=== PATIENT | female | born 1965 | race Asian ===

== ENCOUNTER 2017-12-07 08:18 | Emergency (ER) | payer OTHER ==
[~2017-12-07] VITALS: Ht 162.6 cm; Wt 58.8 kg
[2017-12-07] MEDS ORDERED: TAMO10 PO (08:32)
[2017-12-07] MEDS ORDERED: SODIUM CHLORIDE 0.9% 1,000 ML IV ONE (08:57)
[2017-12-07] MEDS ORDERED: ONDANSETRON HCL 4 MG/2 ML VIAL IVP ONE (09:00)
[2017-12-07] MEDS ORDERED: MECLIZINE HCL 25 MG TABLET PO ONE (09:00)
[2017-12-07 09:21] LABS: BASOPHILS % (AUTO) 0.4 % (0.0-2.0); EOSINOPHILS % (AUTO) 0.6 % (1.0-6.0); HEMATOCRIT 39.7 % (36-46); HEMOGLOBIN 13.4 g/dL (12.0-16.0); LYMPHOCYTES # (AUTO) 1.6 K/uL (1.0-4.8); LYMPHOCYTES % (AUTO) 22.3 % (22.0-44.0); MEAN CORPUSCULAR HEMOGLOBIN 26.7 pg (26.0-34.0); MEAN CORPUSCULAR HGB CONC 33.7 G/dL (31.0-37.0); MEAN CORPUSCULAR VOLUME 79 fL (80-100); MONOCYTES # (AUTO) 0.4 K/uL (0.1-1.0); MONOCYTES % (AUTO) 4.8 % (2.0-9.0); NEUTROPHILS # (AUTO) 5.3 K/uL (1.8-7.7); NEUTROPHILS % (AUTO) 71.9 % (40.0-70.0); PLATELET COUNT (AUTO) 281 K/uL (150-450); RED BLOOD CELL COUNT(AUTO) 5.02 MIL/uL (4.00-5.20)
[2017-12-07 09:30] LABS: ANION GAP 10 mmol/L (8-16); CALCIUM, TOTAL 9.4 mg/dL (8.8-10.5); CARBON DIOXIDE 29 mmol/L (22-29); CHLORIDE 103 mmol/L (98-107); CREATININE 0.58 mg/dL (0.60-1.30); GLOMERULAR FILTR. RATE CALC > 60 mL/min (>60); GLUCOSE,RANDOM 133 mg/dL (70-110); POTASSIUM 3.6 mmol/L (3.5-5.1); SODIUM SERUM 142 mmol/L (136-145); UREA NITROGEN, BLOOD 15 mg/dL (7-18)
[2017-12-07 09:36] LABS: ALANINE AMINOTRANSFERASE 61 U/L (12-78); ALBUMIN 3.9 g/dL (3.4-5.0); ALKALINE PHOSPHATASE 70 U/L (46-116); ASPARTATE AMINOTRANSFERASE 37 U/L (15-37); BILIRUBIN,TOTAL 0.5 mg/dL (0.1-1.0); LIPASE 463 U/L (73-393); TOTAL PROTEIN, SERUM 7.3 g/dL (6.4-8.2)
[2017-12-07 09:55] LABS: BILIRUBIN,URINE NEGATIVE (NEGATIVE); GLUCOSE, URINE (UA) NEGATIVE (NEGATIVE); KETONES,URINE NEGATIVE (NEGATIVE); LEUKOCYTE ESTERASE ,URINE NEGATIVE (NEGATIVE); NITRATE,URINE NEGATIVE (NEGATIVE); OCCULT BLOOD,URINE NEGATIVE (NEGATIVE); PH,URINE 7.5 (5.0-8.0); PROTEIN,URINE NEGATIVE (NEGATIVE); UROBILINOGEN,URINE 0.2 mg/dL (<=1.0)
[2017-12-07 10:18] LABS: APPEARANCE,URINE HAZY (CLEAR)
[2017-12-07 11:22] VITALS: BP 124/85
== END 2017-12-07 11:54 | disposition home or self-care (01) ==
LOC: EMS 08:19
DX: K85.90 Acute pancreatitis without necrosis or infection, unspecified (principal); R11.2 Nausea with vomiting, unspecified; R42 Dizziness and giddiness; I10 Essential (primary) hypertension; Z79.899 Other long term (current) drug therapy
CPT/HCPCS: 36415; 80053; 81003; 83690; 85025; 96361; 96374; 99284; J2405; J7030

== ENCOUNTER 2019-02-20 09:18 | Emergency (ER) | payer OTHER ==
[~2019-02-20] VITALS: Ht 157.5 cm; Wt 57.7 kg
[~2019-02-20 09:18] MED LIST: TAMO10 PO
[2019-02-20] MEDS ORDERED: GUAI5SYR4 PO (09:38)
[2019-02-20] MEDS ORDERED: ONDANSETRON HCL 4 MG/2 ML VIAL IVP ONE (09:45)
[2019-02-20] MEDS ORDERED: SODIUM CHLORIDE 0.9% 1,000 ML IV ONE (09:45)
[2019-02-20 10:10] LABS: BASOPHILS % (AUTO) 0.3 % (0.0-2.0); EOSINOPHILS % (AUTO) 0.8 % (1.0-6.0); HEMATOCRIT 39.3 % (36-46); HEMOGLOBIN 12.9 g/dL (12.0-16.0); LYMPHOCYTES # (AUTO) 1.1 K/uL (1.0-4.8); LYMPHOCYTES % (AUTO) 15.1 % (22.0-44.0); MEAN CORPUSCULAR HEMOGLOBIN 26.9 pg (26.0-34.0); MEAN CORPUSCULAR HGB CONC 32.8 G/dL (31.0-37.0); MEAN CORPUSCULAR VOLUME 82 fL (80-100); MONOCYTES # (AUTO) 0.6 K/uL (0.1-1.0); MONOCYTES % (AUTO) 8.7 % (2.0-9.0); NEUTROPHILS # (AUTO) 5.4 K/uL (1.8-7.7); NEUTROPHILS % (AUTO) 75.1 % (40.0-70.0); PLATELET COUNT (AUTO) 236 K/uL (150-450); RED BLOOD CELL COUNT(AUTO) 4.79 MIL/uL (4.00-5.20); RED CELL DISTRIBUTION WIDTH 14.1 % (11.5-14.5)
[2019-02-20 10:19] LABS: ANION GAP 7 mmol/L (8-16); CARBON DIOXIDE 29 mmol/L (22-29); CHLORIDE 103 mmol/L (98-107); CREATININE 0.61 mg/dL (0.60-1.30); GLOMERULAR FILTR. RATE CALC > 60 mL/min (>60); GLUCOSE,RANDOM 132 mg/dL (70-110); POTASSIUM 3.4 mmol/L (3.5-5.1); SODIUM SERUM 139 mmol/L (136-145); UREA NITROGEN, BLOOD 9 mg/dL (7-18)
[2019-02-20 10:31] LABS: B-TYPE NATRIURETIC PEPTIDE 43 pg/mL (0-100)
[2019-02-20 10:44] LABS: ALANINE AMINOTRANSFERASE 49 U/L (12-78); ALBUMIN 3.7 g/dL (3.4-5.0); ALKALINE PHOSPHATASE 85 U/L (46-116); ASPARTATE AMINOTRANSFERASE 42 U/L (15-37); BILIRUBIN,TOTAL 0.2 mg/dL (0.1-1.0); CREATINE KINASE, TOTAL ONLY 117 U/L (26-192); TOTAL PROTEIN, SERUM 7.8 g/dL (6.4-8.2)
[2019-02-20] MEDS ORDERED: SODIUM CHLORIDE 0.9% 100 ML ONE (10:44)
[2019-02-20] MEDS ORDERED: IOVERSOL 350 MG/ML 100 ML VIAL ONE (10:44)
[2019-02-20] MEDS ORDERED: CefTRIAXone 1 GM/DEXTROSE 50 ML IV ONE (12:15)
[2019-02-20] MEDS ORDERED: METOCLOPRAMIDE HCL 5 MG/ML 2 ML VIAL IVP ONE (12:15)
[2019-02-20 13:24] VITALS: BP 130/88
== END 2019-02-20 13:43 | disposition home or self-care (01) ==
LOC: EMS 09:20
DX: J20.9 Acute bronchitis, unspecified (principal); R11.2 Nausea with vomiting, unspecified; Z90.11 Acquired absence of right breast and nipple
CPT/HCPCS: 36415; 71045; 71275; 80053; 82550; 83605; 83880; 84484; 85025; 85610; 85730; 87040; 93005; 96361; 96365; 96375; 99285; J0696; J2405; J2765; J7030; J7050; Q9967

== ENCOUNTER → 2020-06-29 | Outpatient (CLI) | payer OTHER ==
[~2020-06-29] MED LIST changes: +GUAI5SYR4 PO
== END | disposition home or self-care (01) ==
LOC: RADPV 08:48
PROVIDERS: ATTEND Internal Medicine
DX: R76.11 Nonspecific reaction to tuberculin skin test without active tuberculosis (principal)
CPT/HCPCS: 71045-TC

== ENCOUNTER 2020-09-18 15:23 | Emergency (ER) | payer OTHER ==
[~2020-09-18] VITALS: Ht 160 cm; Wt 56.8 kg
[2020-09-18] MEDS ORDERED: LOSA25TA21 PO (15:44)
[2020-09-18] MEDS ORDERED: LETR2.5 PO (15:44)
[2020-09-18] MEDS ORDERED: METHOCARBAMOL 500 MG TABLET PO ONE (19:30)
[2020-09-18] MEDS ORDERED: IBUPROFEN 600 MG TABLET PO ONE (19:30)
[2020-09-18 19:57] VITALS: BP 126/69
== END 2020-09-18 20:55 | disposition home or self-care (01) ==
LOC: EMS 15:23
DX: S16.1XXA Strain of muscle, fascia and tendon at neck level, initial encounter (principal); S13.9XXA Sprain of joints and ligaments of unspecified parts of neck, initial encounter; S39.012A Strain of muscle, fascia and tendon of lower back, initial encounter; V43.52XA Car driver injured in collision with other type car in traffic accident, initial encounter; Y93.89 Activity, other specified; Y92.488 Other paved roadways as the place of occurrence of the external cause; Y99.8 Other external cause status
CPT/HCPCS: 72040; 72070; 72100; Z7502; Z7610

== ENCOUNTER 2023-06-18 06:54 | Emergency (ER) | payer OTHER ==
[~2023-06-18] VITALS: Ht 167.6 cm; Wt 54.4 kg
[~2023-06-18 06:54] MED LIST changes: -GUAI5SYR4 PO; +LETR2.5 PO; +LOSA-381 PO; -TAMO10 PO
[2023-06-18 07:06] VITALS: TEMP 99
[2023-06-18] MEDS ORDERED: ACETAMINOPHEN/CODEINE 300-30 MG TABLET PO ONE (07:30)
[2023-06-18] MEDS ORDERED: KETOROLAC TROMETHAMINE 60 MG/2 ML VIAL IM ONE (07:30)
[2023-06-18] MEDS ORDERED: IBUP-1554 PO (09:03)
[2023-06-18] MEDS ORDERED: ACET-66 PO (09:03)
[2023-06-18 09:18] VITALS: BP 118/64; PULSE 68; RESP 16
== END 2023-06-18 09:19 | disposition home or self-care (01) ==
LOC: EMS 06:54
DX: S13.4XXA Sprain of ligaments of cervical spine, initial encounter (principal); S39.012A Strain of muscle, fascia and tendon of lower back, initial encounter; E78.00 Pure hypercholesterolemia, unspecified; Z98.890 Other specified postprocedural states; V49.9XXA Car occupant (driver) (passenger) injured in unspecified traffic accident, initial encounter; Y93.89 Activity, other specified; Y92.89 Other specified places as the place of occurrence of the external cause; Y99.8 Other external cause status
CPT/HCPCS: 99284; 72040; 72070; 72100; 96372; J1885

== ENCOUNTER 2023-08-23 18:51 | Emergency (ER) | payer OTHER ==
[~2023-08-23 18:51] MED LIST changes: +ACET-66 PO; +IBUP-1554 PO
== END 2023-08-23 19:30 | disposition left against medical advice (07) ==
LOC: EMS 18:51
DX: Z53.21 Procedure and treatment not carried out due to patient leaving prior to being seen by health care provider (principal)